=== PATIENT | male | born 1980 | race African-American/Black ===

== ENCOUNTER 2023-02-06 08:18 | Emergency (ER) | payer SELFPAY ==
[~2023-02-06] VITALS: Ht 177.8 cm; Wt 99.0 kg
[2023-02-06 08:27] VITALS: O2SAT 100
[2023-02-06] MEDS ORDERED: LACTATED RINGERS 1,000 ML IV SCH (08:45)
[2023-02-06 08:47] LABS: BASOPHILS % 0.3 % (0.0-2.0); EOSINOPHILS % 0.3 % (0.0-5.0); HEMATOCRIT. 43.2 % (42.0-52.0); HEMOGLOBIN. 14.3 g/dL (14.0-18.0); LYMPHOCYTES % 14.7 % (20.0-50.0); MEAN CORPUSCULAR HEMOGLOBIN 28.9 pg (28.0-32.0); MEAN CORPUSCULAR VOLUME 87.5 fL (80.0-94.0); MEAN PLATELET VOLUME 8.7 fl (7.4-10.4); MONOCYTES % 6.7 % (2.0-8.0); PLATELET 233 x1000/uL (130-400); RED BLOOD CELL COUNT 4.94 mill/uL (4.7-6.1); RED CELL DISTRIBUTION WIDTH 15.1 % (11.6-14.6); WHITE BLOOD COUNT 13.7 x1000/uL (4.5-11.0)
[2023-02-06 09:06] LABS: ALANINE AMINOTRANSFERASE 18 IU/L (10-49); ALBUMIN 4.6 g/dL (3.2-4.8); ASPARTATE AMINOTRANSFERASE 20 IU/L (<34); BILIRUBIN TOTAL 0.7 mg/dL (0.1-1.0); CALCIUM 9.5 mg/dL (8.7-10.4); CARBON DIOXIDE 24 mEq/L (21-32); CHLORIDE 102 mEq/L (98-107); CREATININE 1.1 mg/dL (0.6-1.3); GLUCOSE 91 mg/dL (70-105); POTASSIUM 3.6 mEq/L (3.5-5.1); PROTEIN TOTAL 7.5 g/dL (6.0-8.3); SODIUM 138 mEq/L (136-145); TROPONIN I HIGH SENSITIVITY 6 ng/L (3.0-53); UREA NITROGEN BLOOD 8 mg/dL (9-23)
[2023-02-06] MEDS ORDERED: DIAZEPAM 5 MG/ML 2ML CPJ IV ONE (09:15)
[2023-02-06 11:41] LABS: TROPONIN I HIGH SENSITIVITY 4 ng/L (3.0-53)
[2023-02-06 14:36] VITALS: BP 120/63; PULSE 86; RESP 18; TEMP 98.5
== END 2023-02-06 15:00 | disposition home or self-care (01) ==
LOC: ER 08:33
DX: R07.89 Other chest pain (principal); R00.2 Palpitations; F14.10 Cocaine abuse, uncomplicated
CPT/HCPCS: 80053; 85025; 84484; 36415; 71045; 96361; 96374; 99285; J3360; Z7610 ×2